=== PATIENT | female | born 1950 | race Caucasian/White ===

== ENCOUNTER 2017-12-01 22:10 | Inpatient (IN) | payer MEDICARE, MEDICAID ==
[~2017-12-01] VITALS: Ht 162.6 cm; Wt 102.1 kg
[2017-12-01] MEDS ORDERED: LOSA25TA96 PO (22:33)
[2017-12-01] MEDS ORDERED: OMEP40CA37 PO (22:33)
[2017-12-01] MEDS ORDERED: METF500T PO (22:33)
[2017-12-01] MEDS ORDERED: AMLO1CAP19 PO (22:33)
[2017-12-01] MEDS ORDERED: DET2LAC PO (22:33)
[2017-12-01] MEDS ORDERED: PARO30TA4 PO (22:33)
[2017-12-01] MEDS ORDERED: ROSU40TA PO (22:33)
[2017-12-01] MEDS ORDERED: FURO-150 PO (22:33)
[2017-12-01] MEDS ORDERED: ASPI-1264 PO (22:33)
[2017-12-01] MEDS ORDERED: GLIM1TAB46 PO (22:33)
[2017-12-01] MEDS ORDERED: ARIP5TAB4 PO (22:33)
[2017-12-01] MEDS ORDERED: ALB0.5UD IH (22:34)
[2017-12-01 22:43] LABS: INR 1.2 INR; PARTIAL THROMBOPLASTIN TIME 26 SECONDS (22-32)
[2017-12-01 22:46] LABS: ALANINE AMINOTRANSFERASE 14 U/L (12-78); ALBUMIN/GLOBULIN RATIO 0.7 (1.1-1.5); ALKALINE PHOSPHATASE 106 IU/L (46-116); ANION GAP 6 (8-16); ASPARTATE AMINO TRANSFERASE 12 U/L (10-37); BILIRUBIN,TOTAL 0.5 MG/DL (0.1-1.0); BLOOD UREA NITROGEN 11 MG/DL (7-18); BUN/CREATININE RATIO 16.2 (6.6-38.0); CALCIUM 8.5 MG/DL (8.5-10.1); CHLORIDE 94 MMOL/L (99-107); CREATININE 0.68 MG/DL (0.40-0.90); GLUCOSE 114 MG/DL (70-104); POTASSIUM 4.1 MMOL/L (3.5-5.1); SODIUM 131 MMOL/L (135-145); TOTAL CARBON DIOXIDE 31.3 MMOL/L (24-32); TOTAL PROTEIN 7.2 G/DL (6.4-8.2); eGFR 86 ML/MIN
[2017-12-01 22:55] LABS: BASOPHILS # (AUTO) 0.1 X10'3 (0-0.2); BASOPHILS % (AUTO) 0.6 % (0-1); EOSINOPHILS % (AUTO) 0 % (0-6); HEMATOCRIT 35.9 % (35.0-45.0); HEMOGLOBIN 10.8 g/dl (12.0-16.0); LYMPHOCYTES # (AUTO) 1.6 X10'3 (1.1-4.8); MEAN CORPUSCULAR HGB CONC 30.1 % (33.0-36.5); MEAN CORPUSCULAR VOLUME 66.6 FL (78-98); MEAN PLATELET VOLUME 7.8 FL (7.4-10.4); MONOCYTES # (AUTO) 0.8 X10'3 (0-0.9); MONOCYTES % (AUTO) 5.7 % (2-12); NEUTROPHILS # (AUTO) 12.3 X10'3 (1.8-7.7); NEUTROPHILS % (AUTO) 82.7 % (42-75); PLATELET COUNT 367 X10'3 (140-440); RED CELL DISTRIBUTION WIDTH 21.7 % (11.5-14.5); WHITE BLOOD COUNT 14.8 X10'3 (4.5-11.0)
[2017-12-01 22:57] LABS: PLATELET ESTIMATE NORMAL
[2017-12-01 22:58] LABS: ANISOCYTOSIS 3+; HYPOCHROMASIA 1+; POIKILOCYTOSIS 2+; POLYCHROMASIA 1+; TARGET CELLS 1+
[2017-12-01 22:59] LABS: SPHEROCYTES 1+
[2017-12-01 23:24] LABS: CLARITY,URINE CLEAR (Clear); COLOR,URINE YELLOW (Yellow); GLUCOSE, URINE NEGATIVE (Neg); KETONES,URINE TRACE mg/dl (Neg); LEUKOCYTE ESTERASE ,URINE NEGATIVE (Neg); NITRITES, URINE NEGATIVE (Neg); OCCULT BLOOD,URINE NEGATIVE (Neg); PROTEIN,URINE NEGATIVE (Neg)
[2017-12-01 23:27] LABS: UA COLLECTION TYPE CLN CATCH MIDSTREAM
[2017-12-01] MEDS ORDERED: methylPREDNISolone sod succ 125mg/2ml vial IV ONE (23:30)
[2017-12-01] MEDS ORDERED: ipratropium/albuterol 3ml nebule NEB ONE (23:30)
[2017-12-02] MEDS ORDERED: CefTRIAXone/D5W-Rocephin 1gm 50 ML IV ONE (00:15)
[2017-12-02] MEDS ORDERED: ondansetron/PF 4mg/2ml inj IV PRN (00:40)
[2017-12-02] MEDS ORDERED: magnesium hydroxide 30ml (MOM) UD suspension PO PRN (00:40)
[2017-12-02] MEDS ORDERED: mag hydrox/Alum hydrox/simeth 30ml oral suspension PO PRN (00:40)
[2017-12-02] MEDS ORDERED: acetaminophen 325mg tablet PO PRN (00:40)
[2017-12-02] MEDS ORDERED: albuterol 2.5 MG/3 ML nebule NEB PRN (00:45)
[2017-12-02] MEDS ORDERED: dextrose 50%-water 50ml dispensing syringe IV PRN ×2 (01:00)
[2017-12-02] MEDS ORDERED: dextrose ORAL solution 15 GM/59 ML bottle PO PRN ×2 (01:00)
[2017-12-02] MEDS ORDERED: MESSAGE TO PHARMACY PO ONE (01:00)
[2017-12-02] MEDS ORDERED: glucagon, human recombinant 1mg kit SUBCUT PRN (01:00)
[2017-12-02 01:30] VITALS: BP 133/49
[2017-12-02 01:32] LABS: % IRON SATURATION 3 % (11-46); IRON 18 UG/DL (49-151); TOTAL IRON BINDING CAPACITY 589 UG/DL (259-388)
[2017-12-02 01:35] LABS: HEMOGLOBIN A1C 7.2 % (4.5-6.2)
[2017-12-02 07:00] VITALS: BP 126/65
[2017-12-02] MEDS: heparin, porcine 5000 units/ml vial SQ SCH ×2 (07:57→21:42)
[2017-12-02] MEDS: methylPREDNISolone sod succ/PF 40mg inj. IV SCH ×2 (07:58→15:31)
[2017-12-02] MEDS: lisinopril 10 MG tablet PO SCH (08:00)
[2017-12-02] MEDS: losartan 50mg tablet PO SCH ×2 (08:00→21:43)
[2017-12-02] MEDS: pantoprazole 40mg Tablet.DR PO SCH (08:00)
[2017-12-02] MEDS: aripiprazole 5mg tablet PO SCH (08:00)
[2017-12-02] MEDS: aspirin 325mg tablet PO SCH (08:00)
[2017-12-02] MEDS ORDERED: tolterodine 2mg SR capsule (24hr) PO SCH (08:00)
[2017-12-02] MEDS: amLODIPine 2.5mg tablet PO SCH (08:00)
[2017-12-02] MEDS: PARoxetine 10mg tablet PO SCH (08:00)
[2017-12-02] MEDS: atorvastatin 20mg tablet PO SCH (08:00)
[2017-12-02 11:00] VITALS: BP 105/50
[2017-12-02] MEDS: insulin Lispro (HumaLOG) vial - multi-dose SQ SCH ×3 (11:47→20:09)
[2017-12-02] MEDS: furosemide 20 MG/2 ML vial IV SCH (15:31)
[2017-12-02] MEDS: azithromycin 250mg tablet PO SCH (15:31)
[2017-12-02] MEDS: nicotine 21mg patch - 24 hr TD SCH (19:06)
[2017-12-02 20:00] VITALS: BP 112/46
[2017-12-02] MEDS: lactobacillus rhamnosus 10,000 MMU CELLS/CAPSULE PO SCH (21:43)
[2017-12-02] MEDS: insulin glargine (Lantus) pen - multi-dose SQ SCH (21:48)
[2017-12-02] MEDS: CefTRIAXone/D5W-Rocephin 1gm 50 ML IV SCH (21:58)
[2017-12-02 23:30] VITALS: BP 130/74
[2017-12-03] MEDS: methylPREDNISolone sod succ/PF 40mg inj. IV SCH ×2 (00:04→07:55)
[2017-12-03 06:01] LABS: ALANINE AMINOTRANSFERASE 16 U/L (12-78); ALBUMIN 2.9 G/DL (3.4-5.0); ALBUMIN/GLOBULIN RATIO 0.7 (1.1-1.5); ALKALINE PHOSPHATASE 93 IU/L (46-116); ANION GAP 1 (8-16); ASPARTATE AMINO TRANSFERASE 10 U/L (10-37); BILIRUBIN,TOTAL 0.3 MG/DL (0.1-1.0); BLOOD UREA NITROGEN 14 MG/DL (7-18); BUN/CREATININE RATIO 19.2 (6.6-38.0); CHLORIDE 95 MMOL/L (99-107); CREATININE 0.73 MG/DL (0.40-0.90); GLUCOSE 181 MG/DL (70-104); POTASSIUM 4.7 MMOL/L (3.5-5.1); SODIUM 130 MMOL/L (135-145); TOTAL CARBON DIOXIDE 33.9 MMOL/L (24-32); TOTAL PROTEIN 6.9 G/DL (6.4-8.2); eGFR 79 ML/MIN
[2017-12-03 06:03] LABS: BASOPHILS % (AUTO) 0 % (0-1); EOSINOPHILS # (AUTO) 0.1 X10'3 (0-0.9); EOSINOPHILS % (AUTO) 0.7 % (0-6); HEMATOCRIT 33.5 % (35.0-45.0); LYMPHOCYTES # (AUTO) 0.7 X10'3 (1.1-4.8); LYMPHOCYTES % (AUTO) 4.9 % (21-51); MEAN CORPUSCULAR HGB CONC 29.8 % (33.0-36.5); MEAN CORPUSCULAR VOLUME 67.1 FL (78-98); MEAN PLATELET VOLUME 8.4 FL (7.4-10.4); MONOCYTES # (AUTO) 0.4 X10'3 (0-0.9); MONOCYTES % (AUTO) 3.3 % (2-12); NEUTROPHILS # (AUTO) 12.2 X10'3 (1.8-7.7); NEUTROPHILS % (AUTO) 91.1 % (42-75); PLATELET COUNT 360 X10'3 (140-440); RED CELL DISTRIBUTION WIDTH 21.4 % (11.5-14.5); WHITE BLOOD COUNT 13.4 X10'3 (4.5-11.0)
[2017-12-03 06:08] LABS: ANISOCYTOSIS 3+; MICROCYTOSIS 2+; PLATELET ESTIMATE NORMAL
[2017-12-03 06:09] LABS: HYPOCHROMASIA 2+
[2017-12-03 06:10] LABS: TARGET CELLS FEW
[2017-12-03 07:46] VITALS: BP 114/44
[2017-12-03] MEDS: amLODIPine 2.5mg tablet PO SCH (07:55)
[2017-12-03] MEDS: azithromycin 250mg tablet PO SCH (07:55)
[2017-12-03] MEDS: nicotine 21mg patch - 24 hr TD SCH (07:55)
[2017-12-03] MEDS: losartan 50mg tablet PO SCH ×2 (07:56→20:00)
[2017-12-03] MEDS: lisinopril 10 MG tablet PO SCH (07:56)
[2017-12-03] MEDS: pantoprazole 40mg Tablet.DR PO SCH (07:56)
[2017-12-03] MEDS: aspirin 325mg tablet PO SCH (07:56)
[2017-12-03] MEDS: aripiprazole 5mg tablet PO SCH (07:56)
[2017-12-03] MEDS: heparin, porcine 5000 units/ml vial SQ SCH ×2 (07:56→21:20)
[2017-12-03] MEDS: lactobacillus rhamnosus 10,000 MMU CELLS/CAPSULE PO SCH ×2 (07:56→20:00)
[2017-12-03] MEDS: furosemide 20 MG/2 ML vial IV SCH (07:57)
[2017-12-03] MEDS: atorvastatin 20mg tablet PO SCH (07:57)
[2017-12-03] MEDS: PARoxetine 10mg tablet PO SCH (08:18)
[2017-12-03] MEDS: insulin Lispro (HumaLOG) vial - multi-dose SQ SCH ×2 (08:27→19:26)
[2017-12-03] MEDS: oxybutynin 5mg tablet PO SCH ×4 (10:03→21:20)
[2017-12-03 11:00] VITALS: BP 94/51
[2017-12-03 18:00] VITALS: BP 84/42
[2017-12-03] MEDS: CefTRIAXone/D5W-Rocephin 1gm 50 ML IV SCH (21:20)
[2017-12-03] MEDS: insulin glargine (Lantus) pen - multi-dose SQ SCH (21:26)
[2017-12-04] VITALS: BP 101/41
[2017-12-04 04:55] LABS: BASOPHILS % (AUTO) 0.3 % (0-1); EOSINOPHILS % (AUTO) 0.1 % (0-6); HEMATOCRIT 35.8 % (35.0-45.0); HEMOGLOBIN 10.3 g/dl (12.0-16.0); LYMPHOCYTES # (AUTO) 2.8 X10'3 (1.1-4.8); LYMPHOCYTES % (AUTO) 19.5 % (21-51); MEAN CORPUSCULAR HEMOGLOBIN 19.8 PG (27.0-31.0); MEAN CORPUSCULAR HGB CONC 28.9 % (33.0-36.5); MEAN CORPUSCULAR VOLUME 68.6 FL (78-98); MEAN PLATELET VOLUME 8.1 FL (7.4-10.4); MONOCYTES # (AUTO) 1.2 X10'3 (0-0.9); MONOCYTES % (AUTO) 8.7 % (2-12); NEUTROPHILS # (AUTO) 10.2 X10'3 (1.8-7.7); NEUTROPHILS % (AUTO) 71.4 % (42-75); PLATELET COUNT 389 X10'3 (140-440); RED BLOOD COUNT 5.22 X10'6 (4.20-5.60); RED CELL DISTRIBUTION WIDTH 21.4 % (11.5-14.5); WHITE BLOOD COUNT 14.3 X10'3 (4.5-11.0)
[2017-12-04 05:25] LABS: ALANINE AMINOTRANSFERASE 14 U/L (12-78); ALBUMIN 2.9 G/DL (3.4-5.0); ALBUMIN/GLOBULIN RATIO 0.7 (1.1-1.5); ALKALINE PHOSPHATASE 86 IU/L (46-116); ANION GAP 2 (8-16); ASPARTATE AMINO TRANSFERASE 11 U/L (10-37); BILIRUBIN,TOTAL 0.2 MG/DL (0.1-1.0); BLOOD UREA NITROGEN 24 MG/DL (7-18); BUN/CREATININE RATIO 30.8 (6.6-38.0); CALCIUM 8.5 MG/DL (8.5-10.1); CHLORIDE 98 MMOL/L (99-107); CREATININE 0.78 MG/DL (0.40-0.90); GLUCOSE 91 MG/DL (70-104); POTASSIUM 4.7 MMOL/L (3.5-5.1); SODIUM 137 MMOL/L (135-145); TOTAL CARBON DIOXIDE 37.1 MMOL/L (24-32); TOTAL PROTEIN 6.8 G/DL (6.4-8.2); eGFR 73 ML/MIN
[2017-12-04 07:15] VITALS: BP 93/41
[2017-12-04] MEDS: losartan 50mg tablet PO SCH ×2 (08:00→20:31)
[2017-12-04] MEDS: amLODIPine 2.5mg tablet PO SCH (08:00)
[2017-12-04] MEDS: insulin Lispro (HumaLOG) vial - multi-dose SQ SCH ×2 (08:37→14:15)
[2017-12-04] MEDS: nicotine 21mg patch - 24 hr TD SCH (08:39)
[2017-12-04] MEDS: heparin, porcine 5000 units/ml vial SQ SCH ×2 (08:39→20:31)
[2017-12-04] MEDS: lactobacillus rhamnosus 10,000 MMU CELLS/CAPSULE PO SCH ×2 (08:40→20:31)
[2017-12-04] MEDS: aspirin 325mg tablet PO SCH (08:40)
[2017-12-04] MEDS: atorvastatin 20mg tablet PO SCH (08:40)
[2017-12-04] MEDS: oxybutynin 5mg tablet PO SCH ×4 (08:40→20:31)
[2017-12-04] MEDS: azithromycin 250mg tablet PO SCH (08:40)
[2017-12-04] MEDS: PARoxetine 10mg tablet PO SCH (08:40)
[2017-12-04] MEDS: pantoprazole 40mg Tablet.DR PO SCH (08:40)
[2017-12-04] MEDS: aripiprazole 5mg tablet PO SCH (08:41)
[2017-12-04 10:19] LABS: ANISOCYTOSIS 3+; MICROCYTOSIS 2+; PLATELET ESTIMATE NORMAL
[2017-12-04 10:20] LABS: ELLIPTOCYTES FEW; HYPOCHROMASIA 2+; POLYCHROMASIA FEW; STOMATOCYTES 1+
[2017-12-04 10:21] LABS: BURR CELLS FEW; SCHISTOCYTES FEW
[2017-12-04 11:00] VITALS: BP 97/56
[2017-12-04 18:00] VITALS: BP 104/62
[2017-12-04] MEDS: CefTRIAXone/D5W-Rocephin 1gm 50 ML IV SCH (20:30)
[2017-12-04] MEDS: insulin glargine (Lantus) pen - multi-dose SQ SCH (21:54)
[2017-12-05] VITALS (20 sets, daily range): BP systolic 82–150; BP diastolic 32–67
[2017-12-05 05:22] LABS: ALANINE AMINOTRANSFERASE 15 U/L (12-78); ALBUMIN 2.9 G/DL (3.4-5.0); ALBUMIN/GLOBULIN RATIO 0.7 (1.1-1.5); ALKALINE PHOSPHATASE 91 IU/L (46-116); ANION GAP 3 (8-16); ASPARTATE AMINO TRANSFERASE 11 U/L (10-37); BILIRUBIN,TOTAL 0.2 MG/DL (0.1-1.0); BLOOD UREA NITROGEN 28 MG/DL (7-18); BUN/CREATININE RATIO 32.6 (6.6-38.0); CALCIUM 8.3 MG/DL (8.5-10.1); CHLORIDE 97 MMOL/L (99-107); CREATININE 0.86 MG/DL (0.40-0.90); GLUCOSE 113 MG/DL (70-104); POTASSIUM 4.9 MMOL/L (3.5-5.1); SODIUM 134 MMOL/L (135-145); TOTAL CARBON DIOXIDE 34.5 MMOL/L (24-32); TOTAL PROTEIN 6.8 G/DL (6.4-8.2); eGFR 65 ML/MIN
[2017-12-05 05:24] LABS: BASOPHILS # (AUTO) 0.1 X10'3 (0-0.2); BASOPHILS % (AUTO) 1.1 % (0-1); EOSINOPHILS % (AUTO) 0.2 % (0-6); HEMATOCRIT 35.8 % (35.0-45.0); HEMOGLOBIN 10.3 g/dl (12.0-16.0); LYMPHOCYTES # (AUTO) 1.6 X10'3 (1.1-4.8); LYMPHOCYTES % (AUTO) 13.8 % (21-51); MEAN CORPUSCULAR HEMOGLOBIN 20.1 PG (27.0-31.0); MEAN CORPUSCULAR HGB CONC 28.7 % (33.0-36.5); MEAN CORPUSCULAR VOLUME 70.1 FL (78-98); MEAN PLATELET VOLUME 7.9 FL (7.4-10.4); MONOCYTES # (AUTO) 0.9 X10'3 (0-0.9); MONOCYTES % (AUTO) 7.4 % (2-12); NEUTROPHILS # (AUTO) 9.2 X10'3 (1.8-7.7); NEUTROPHILS % (AUTO) 77.5 % (42-75); PLATELET COUNT 401 X10'3 (140-440); RED BLOOD COUNT 5.11 X10'6 (4.20-5.60); RED CELL DISTRIBUTION WIDTH 20.2 % (11.5-14.5); WHITE BLOOD COUNT 11.8 X10'3 (4.5-11.0)
[2017-12-05] MEDS: amLODIPine 2.5mg tablet PO SCH (08:00)
[2017-12-05] MEDS: losartan 50mg tablet PO SCH (08:00)
[2017-12-05 08:09] LABS: PLATELET ESTIMATE NORMAL
[2017-12-05 08:10] LABS: POLYCHROMASIA 1+
[2017-12-05 08:11] LABS: ANISOCYTOSIS 2+; HYPOCHROMASIA 2+; MICROCYTOSIS 2+; STOMATOCYTES 1+
[2017-12-05 08:12] LABS: ELLIPTOCYTES FEW; TARGET CELLS FEW
[2017-12-05] MEDS: azithromycin 250mg tablet PO SCH (08:15)
[2017-12-05] MEDS: atorvastatin 20mg tablet PO SCH (08:15)
[2017-12-05] MEDS: heparin, porcine 5000 units/ml vial SQ SCH ×2 (08:15→20:30)
[2017-12-05] MEDS: insulin Lispro (HumaLOG) vial - multi-dose SQ SCH (08:15)
[2017-12-05] MEDS: pantoprazole 40mg Tablet.DR PO SCH (08:16)
[2017-12-05] MEDS: oxybutynin 5mg tablet PO SCH ×4 (08:16→20:30)
[2017-12-05] MEDS: aripiprazole 5mg tablet PO SCH (08:16)
[2017-12-05] MEDS: PARoxetine 10mg tablet PO SCH (08:16)
[2017-12-05] MEDS: aspirin 325mg tablet PO SCH (08:16)
[2017-12-05] MEDS: lactobacillus rhamnosus 10,000 MMU CELLS/CAPSULE PO SCH ×2 (08:16→20:30)
[2017-12-05] MEDS: nicotine 21mg patch - 24 hr TD SCH (08:17)
[2017-12-05] MEDS ORDERED: orphenadrine citrate 60mg/2ml inj. IV ONE ×3 (09:25→10:05)
[2017-12-05 09:59] LABS: MAGNESIUM 2.4 MG/DL (1.5-2.4); TROPONIN I < 0.04 NG/ML (0.0-0.05)
[2017-12-05 10:06] LABS: ABG BASE EXCESS 6.3 mmol/L (-2.0-3.0); ABG HCO3 37.6 mmol/L (22.0-26.0); ABG OXYGEN SATURATION 98.2 % (95-98); ABG PCO2 (T) 102.5 mmHg (32.0-45.0); ABG PH (T) 7.182 (7.350-7.450); ABG PO2 (T) 149.1 mmHg (83-108); ALLEN'S TEST Positive; FCOHb 1.4 % (0.5-1.5); FLOW 15 L/min; FMetHb 0.3 % (0.3-1.12); FO2Hb 96.5 % (94-100); TOTAL HEMOGLOBIN 11.4 G/dl (12.0-16.0)
[2017-12-05] MEDS ORDERED: normal saline 500ml IV soln 500 ML IV ONE (11:00)
[2017-12-05 11:21] LABS: ABG BASE EXCESS 6.1 mmol/L (-2.0-3.0); ABG HCO3 35.9 mmol/L (22.0-26.0); ABG OXYGEN SATURATION 93.7 % (95-98); ABG PCO2 (T) 88.4 mmHg (32.0-45.0); ABG PH (T) 7.227 (7.350-7.450); ABG PO2 (T) 77.3 mmHg (83-108); ALLEN'S TEST Positive; FCOHb 1.8 % (0.5-1.5); FMetHb 0.3 % (0.3-1.12); FO2Hb 91.7 % (94-100); TOTAL HEMOGLOBIN 10.7 G/dl (12.0-16.0)
[2017-12-05] MEDS ORDERED: hydrocortisone sod succ/PF 100mg/2ml inj. IV ONE (18:40)
[2017-12-05 18:55] LABS: ABG BASE EXCESS 9.3 mmol/L (-2.0-3.0); ABG HCO3 37.3 mmol/L (22.0-26.0); ABG PCO2 (T) 72.9 mmHg (32.0-45.0); ABG PH (T) 7.327 (7.350-7.450); ABG PO2 (T) 55.3 mmHg (83-108); ALLEN'S TEST Positive; FCOHb 2.1 % (0.5-1.5); FLOW 2 L/min; FMetHb 0.3 % (0.3-1.12); FO2Hb 85.9 % (94-100); PATIENT TEMPERATURE 37.2; TOTAL HEMOGLOBIN 10.4 G/dl (12.0-16.0)
[2017-12-05] MEDS: normal saline 1000ml 1,000 ML IV SCH (19:38)
[2017-12-05] MEDS: DOPamine 400mg/D5W 250ml 250 ML IV SCH (19:42)
[2017-12-05] MEDS: CefTRIAXone/D5W-Rocephin 1gm 50 ML IV SCH (20:30)
[2017-12-05] MEDS: insulin glargine (Lantus) pen - multi-dose SQ SCH (22:38)
[2017-12-05] MEDS ORDERED: ipratropium/albuterol 3ml nebule NEB PRN (23:05)
[2017-12-05 23:35] LABS: ABG BASE EXCESS 5.7 mmol/L (-2.0-3.0); ABG HCO3 34.4 mmol/L (22.0-26.0); ABG OXYGEN SATURATION 94.6 % (95-98); ABG PCO2 (T) 75.9 mmHg (32.0-45.0); ABG PH (T) 7.276 (7.350-7.450); ABG PO2 (T) 83.6 mmHg (83-108); ALLEN'S TEST Positive; FCOHb 1.5 % (0.5-1.5); FMetHb 0.3 % (0.3-1.12); FO2Hb 92.9 % (94-100); MINUTE VOLUME 6 L/min; PATIENT TEMPERATURE 37.3; RESPIRATORY RATE 20 b/min; RESPIRATORY RATE (OBSERVED) 21 b/min; TOTAL HEMOGLOBIN 11.4 G/dl (12.0-16.0)
[2017-12-05] MEDS: ipratropium/albuterol 3ml nebule NEB SCH (23:41)
[2017-12-05] MEDS: methylPREDNISolone sod succ 125mg/2ml vial IV SCH (23:41)
[2017-12-06] VITALS (24 sets, daily range): BP systolic 77–152; BP diastolic 35–97
[2017-12-06 01:00] LABS: PLATELET COUNT 349 X10'3 (140-440)
[2017-12-06 01:11] LABS: D-DIMER 0.54 MG/L FEU (0-0.50); INR 1.1 INR; PARTIAL THROMBOPLASTIN TIME 26 SECONDS (22-32); PROTHROMBIN TIME 11.8 SECONDS (9.0-12.0)
[2017-12-06 01:23] LABS: ALANINE AMINOTRANSFERASE 16 U/L (12-78); ALBUMIN/GLOBULIN RATIO 0.8 (1.1-1.5); ALKALINE PHOSPHATASE 99 IU/L (46-116); ANION GAP 3 (8-16); ASPARTATE AMINO TRANSFERASE 16 U/L (10-37); BILIRUBIN,TOTAL 0.4 MG/DL (0.1-1.0); BLOOD UREA NITROGEN 18 MG/DL (7-18); CALCIUM 8.8 MG/DL (8.5-10.1); CHLORIDE 97 MMOL/L (99-107); CREATININE 0.75 MG/DL (0.40-0.90); GLUCOSE 165 MG/DL (70-104); POTASSIUM 4.6 MMOL/L (3.5-5.1); SODIUM 136 MMOL/L (135-145); TOTAL CARBON DIOXIDE 36.2 MMOL/L (24-32); eGFR 77 ML/MIN
[2017-12-06 02:06] LABS: BASOPHILS % (AUTO) 0 % (0-1); EOSINOPHILS % (AUTO) 0.1 % (0-6); HEMATOCRIT 36.9 % (35.0-45.0); HEMOGLOBIN 10.8 g/dl (12.0-16.0); LYMPHOCYTES % (AUTO) 6.5 % (21-51); MEAN CORPUSCULAR HEMOGLOBIN 20.1 PG (27.0-31.0); MEAN CORPUSCULAR HGB CONC 29.4 % (33.0-36.5); MEAN CORPUSCULAR VOLUME 68.5 FL (78-98); MEAN PLATELET VOLUME 8.1 FL (7.4-10.4); MONOCYTES # (AUTO) 0.5 X10'3 (0-0.9); MONOCYTES % (AUTO) 3.3 % (2-12); NEUTROPHILS # (AUTO) 13.3 X10'3 (1.8-7.7); NEUTROPHILS % (AUTO) 90.1 % (42-75); PLATELET COUNT 331 X10'3 (140-440); RED BLOOD COUNT 5.39 X10'6 (4.20-5.60); RED CELL DISTRIBUTION WIDTH 21.4 % (11.5-14.5); WHITE BLOOD COUNT 14.7 X10'3 (4.5-11.0)
[2017-12-06] MEDS: methylPREDNISolone sod succ 125mg/2ml vial IV SCH ×4 (02:11→20:54)
[2017-12-06] MEDS: ipratropium/albuterol 3ml nebule NEB SCH ×6 (03:34→23:43)
[2017-12-06] MEDS: HYDROcodone/acetaminophen 5mg/325mg tablet PO PRN (04:14)
[2017-12-06 04:41] LABS: ABG BASE EXCESS 6.6 mmol/L (-2.0-3.0); ABG HCO3 34.6 mmol/L (22.0-26.0); ABG OXYGEN SATURATION 97.2 % (95-98); ABG PCO2 (T) 67.8 mmHg (32.0-45.0); ABG PH (T) 7.326 (7.350-7.450); ABG PO2 (T) 106.4 mmHg (83-108); ALLEN'S TEST Positive; FCOHb 1.4 % (0.5-1.5); FMetHb 0.3 % (0.3-1.12); FO2Hb 95.5 % (94-100); MINUTE VOLUME 12 L/min; PATIENT TEMPERATURE 37.2; RESPIRATORY RATE 20 b/min; RESPIRATORY RATE (OBSERVED) 44 b/min
[2017-12-06 06:25] LABS: HYPOCHROMASIA 2+; PLATELET ESTIMATE NORMAL; POLYCHROMASIA 1+
[2017-12-06 06:26] LABS: ANISOCYTOSIS 3+; ELLIPTOCYTES FEW; MICROCYTOSIS 2+; STOMATOCYTES 1+; TARGET CELLS FEW
[2017-12-06] MEDS: nicotine 21mg patch - 24 hr TD SCH (07:33)
[2017-12-06] MEDS: heparin, porcine 5000 units/ml vial SQ SCH ×2 (07:36→20:55)
[2017-12-06] MEDS: aspirin 325mg tablet PO SCH (07:46)
[2017-12-06] MEDS: pantoprazole 40mg Tablet.DR PO SCH (07:46)
[2017-12-06] MEDS: lactobacillus rhamnosus 10,000 MMU CELLS/CAPSULE PO SCH ×2 (07:46→20:54)
[2017-12-06] MEDS: atorvastatin 20mg tablet PO SCH (07:47)
[2017-12-06] MEDS: oxybutynin 5mg tablet PO SCH ×4 (07:47→20:55)
[2017-12-06] MEDS: azithromycin 250mg tablet PO SCH (07:47)
[2017-12-06] MEDS: PARoxetine 10mg tablet PO SCH (07:51)
[2017-12-06] MEDS: aripiprazole 5mg tablet PO SCH (07:54)
[2017-12-06] MEDS: insulin Lispro (HumaLOG) vial - multi-dose SQ SCH ×3 (08:06→18:49)
[2017-12-06] MEDS: DOPamine 400mg/D5W 250ml 250 ML IV SCH ×2 (10:59→17:35)
[2017-12-06 11:31] LABS: ABG BASE EXCESS 7.3 mmol/L (-2.0-3.0); ABG HCO3 34.2 mmol/L (22.0-26.0); ABG OXYGEN SATURATION 94.4 % (95-98); ABG PCO2 (T) 55.6 mmHg (32.0-45.0); ABG PH (T) 7.398 (7.350-7.450); ABG PO2 (T) 64.7 mmHg (83-108); ALLEN'S TEST Positive; FCOHb 1.6 % (0.5-1.5); FMetHb 0.3 % (0.3-1.12); FO2Hb 92.6 % (94-100); MINUTE VOLUME 10 L/min; RESPIRATORY RATE 20 b/min; RESPIRATORY RATE (OBSERVED) 21 b/min; TIDAL VOLUME 518 mL; TOTAL HEMOGLOBIN 11.1 G/dl (12.0-16.0)
[2017-12-06 13:18] LABS: CLARITY,URINE CLEAR (Clear); COLOR,URINE STRAW (Yellow); GLUCOSE, URINE 250 mg/dl (Neg); KETONES,URINE TRACE mg/dl (Neg); LEUKOCYTE ESTERASE ,URINE NEGATIVE (Neg); NITRITES, URINE NEGATIVE (Neg); OCCULT BLOOD,URINE TRACE-INTACT (Neg); PH,URINE 7.5 (4.8-8.0); PROTEIN,URINE TRACE mg/dl (Neg); UROBILINOGEN,URINE 0.2 E.U/dL (0.2-1.0)
[2017-12-06 13:19] LABS: UA COLLECTION TYPE FOLEY CATH
[2017-12-06 13:24] LABS: BACTERIA,URINE NONE SEEN /HPF (Neg); COARSE GRANULAR CAST 0-3 /LPF (NEGATIVE); MUCUS STRANDS NONE SEEN /LPF (Neg); RBC,URINE 0-2 /HPF (0-2); SQUAMOUS EPITHELIAL CELL,UR FEW /LPF (FEW); WBC,URINE 0-4 /HPF (0-4)
[2017-12-06] MEDS: normal saline 1000ml 1,000 ML IV SCH ×2 (15:05→23:52)
[2017-12-06] MEDS: CefTRIAXone/D5W-Rocephin 1gm 50 ML IV SCH (20:55)
[2017-12-06] MEDS: insulin glargine (Lantus) pen - multi-dose SQ SCH (21:08)
[2017-12-07] VITALS (8 sets, daily range): BP systolic 114–147; BP diastolic 50–99
[2017-12-07] MEDS: methylPREDNISolone sod succ 125mg/2ml vial IV SCH ×4 (02:04→20:33)
[2017-12-07] MEDS: ipratropium/albuterol 3ml nebule NEB SCH ×6 (03:54→23:30)
[2017-12-07 05:53] LABS: ALANINE AMINOTRANSFERASE 21 U/L (12-78); ALBUMIN 3.1 G/DL (3.4-5.0); ALBUMIN/GLOBULIN RATIO 0.8 (1.1-1.5); ALKALINE PHOSPHATASE 86 IU/L (46-116); ANION GAP 6 (8-16); ASPARTATE AMINO TRANSFERASE 9 U/L (10-37); BILIRUBIN,TOTAL 0.4 MG/DL (0.1-1.0); BLOOD UREA NITROGEN 17 MG/DL (7-18); BUN/CREATININE RATIO 23.6 (6.6-38.0); CHLORIDE 96 MMOL/L (99-107); CREATININE 0.72 MG/DL (0.40-0.90); GLUCOSE 190 MG/DL (70-104); POTASSIUM 4.1 MMOL/L (3.5-5.1); SODIUM 135 MMOL/L (135-145); TOTAL PROTEIN 7.1 G/DL (6.4-8.2); eGFR 80 ML/MIN
[2017-12-07 06:45] LABS: BASOPHILS % (AUTO) 0 % (0-1); EOSINOPHILS % (AUTO) 0.3 % (0-6); HEMATOCRIT 37.2 % (35.0-45.0); HEMOGLOBIN 10.8 g/dl (12.0-16.0); LYMPHOCYTES # (AUTO) 0.6 X10'3 (1.1-4.8); LYMPHOCYTES % (AUTO) 6.2 % (21-51); MEAN CORPUSCULAR HEMOGLOBIN 19.6 PG (27.0-31.0); MEAN CORPUSCULAR HGB CONC 28.9 % (33.0-36.5); MONOCYTES # (AUTO) 0.3 X10'3 (0-0.9); MONOCYTES % (AUTO) 3.4 % (2-12); NEUTROPHILS # (AUTO) 8.2 X10'3 (1.8-7.7); NEUTROPHILS % (AUTO) 90.1 % (42-75); PLATELET COUNT 337 X10'3 (140-440); RED BLOOD COUNT 5.47 X10'6 (4.20-5.60); RED CELL DISTRIBUTION WIDTH 21.1 % (11.5-14.5); WHITE BLOOD COUNT 9.1 X10'3 (4.5-11.0)
[2017-12-07] MEDS: nicotine 21mg patch - 24 hr TD SCH (07:51)
[2017-12-07] MEDS: heparin, porcine 5000 units/ml vial SQ SCH ×2 (07:52→20:33)
[2017-12-07] MEDS: pantoprazole 40mg Tablet.DR PO SCH (07:53)
[2017-12-07] MEDS: atorvastatin 20mg tablet PO SCH (07:53)
[2017-12-07] MEDS: azithromycin 250mg tablet PO SCH (07:53)
[2017-12-07] MEDS: aspirin 325mg tablet PO SCH (07:53)
[2017-12-07] MEDS: PARoxetine 10mg tablet PO SCH (07:53)
[2017-12-07] MEDS: lactobacillus rhamnosus 10,000 MMU CELLS/CAPSULE PO SCH ×2 (07:53→20:33)
[2017-12-07] MEDS: aripiprazole 5mg tablet PO SCH (07:53)
[2017-12-07] MEDS: oxybutynin 5mg tablet PO SCH ×4 (07:53→20:33)
[2017-12-07] MEDS: insulin Lispro (HumaLOG) vial - multi-dose SQ SCH ×3 (08:38→18:34)
[2017-12-07 10:39] LABS: PLATELET ESTIMATE NORMAL
[2017-12-07 10:42] LABS: ANISOCYTOSIS 3+; ELLIPTOCYTES FEW; HYPOCHROMASIA 1+; MICROCYTOSIS 2+; POLYCHROMASIA FEW; TEAR DROP CELLS FEW
[2017-12-07 10:43] LABS: TARGET CELLS 1+
[2017-12-07] MEDS: HYDROcodone/acetaminophen 5mg/325mg tablet PO PRN ×2 (15:08→20:36)
[2017-12-07] MEDS: normal saline 1000ml 1,000 ML IV SCH (16:41)
[2017-12-07] MEDS: DOPamine 400mg/D5W 250ml 250 ML IV SCH (17:35)
[2017-12-07] MEDS: CefTRIAXone/D5W-Rocephin 1gm 50 ML IV SCH (20:33)
[2017-12-07] MEDS: insulin glargine (Lantus) pen - multi-dose SQ SCH (21:17)
[2017-12-08] MEDS: methylPREDNISolone sod succ 125mg/2ml vial IV SCH ×3 (02:12→13:11)
[2017-12-08 03:00] VITALS: BP 129/66
[2017-12-08] MEDS: ipratropium/albuterol 3ml nebule NEB SCH ×4 (03:05→14:35)
[2017-12-08 07:00] VITALS: BP 145/68
[2017-12-08 07:28] LABS: HEMATOCRIT 36.9 % (35.0-45.0); HEMOGLOBIN 10.9 g/dl (12.0-16.0); MEAN CORPUSCULAR HEMOGLOBIN 19.9 PG (27.0-31.0); MEAN CORPUSCULAR HGB CONC 29.4 % (33.0-36.5); MEAN CORPUSCULAR VOLUME 67.5 FL (78-98); MEAN PLATELET VOLUME 7.9 FL (7.4-10.4); PLATELET COUNT 315 X10'3 (140-440); RED BLOOD COUNT 5.47 X10'6 (4.20-5.60); RED CELL DISTRIBUTION WIDTH 21.4 % (11.5-14.5); WHITE BLOOD COUNT 11.2 X10'3 (4.5-11.0)
[2017-12-08 07:43] LABS: LYMPHOCYTES % (MANUAL) 2 % (21-51); MONOCYTES % (MANUAL) 2 % (2-12); NEUTROPHILS % (MANUAL) 96 % (42-75); PLATELET ESTIMATE NORMAL; TOTAL CELLS COUNTED 100
[2017-12-08 07:44] LABS: ANISOCYTOSIS 3+; HYPOCHROMASIA 1+; MICROCYTOSIS 2+; POLYCHROMASIA FEW; TARGET CELLS FEW
[2017-12-08 07:45] LABS: ALANINE AMINOTRANSFERASE 22 U/L (12-78); ALBUMIN 2.9 G/DL (3.4-5.0); ALBUMIN/GLOBULIN RATIO 0.8 (1.1-1.5); ALKALINE PHOSPHATASE 73 IU/L (46-116); ANION GAP 3 (8-16); ASPARTATE AMINO TRANSFERASE 9 U/L (10-37); BILIRUBIN,TOTAL 0.3 MG/DL (0.1-1.0); BLOOD UREA NITROGEN 17 MG/DL (7-18); BUN/CREATININE RATIO 22.7 (6.6-38.0); CALCIUM 9.1 MG/DL (8.5-10.1); CHLORIDE 96 MMOL/L (99-107); CREATININE 0.75 MG/DL (0.40-0.90); ELLIPTOCYTES FEW; GLUCOSE 199 MG/DL (70-104); POTASSIUM 4.7 MMOL/L (3.5-5.1); SODIUM 133 MMOL/L (135-145); TOTAL CARBON DIOXIDE 33.9 MMOL/L (24-32); TOTAL PROTEIN 6.5 G/DL (6.4-8.2); eGFR 77 ML/MIN
[2017-12-08] MEDS: pantoprazole 40mg Tablet.DR PO SCH (08:04)
[2017-12-08] MEDS: lactobacillus rhamnosus 10,000 MMU CELLS/CAPSULE PO SCH (08:04)
[2017-12-08] MEDS: PARoxetine 10mg tablet PO SCH (08:04)
[2017-12-08] MEDS: atorvastatin 20mg tablet PO SCH (08:04)
[2017-12-08] MEDS: azithromycin 250mg tablet PO SCH (08:04)
[2017-12-08] MEDS: oxybutynin 5mg tablet PO SCH ×3 (08:04→16:14)
[2017-12-08] MEDS: aspirin 325mg tablet PO SCH (08:04)
[2017-12-08] MEDS: aripiprazole 5mg tablet PO SCH (08:04)
[2017-12-08] MEDS: nicotine 21mg patch - 24 hr TD SCH (08:05)
[2017-12-08] MEDS: heparin, porcine 5000 units/ml vial SQ SCH (08:05)
[2017-12-08] MEDS: insulin Lispro (HumaLOG) vial - multi-dose SQ SCH ×2 (08:19→13:15)
[2017-12-08] MEDS: normal saline 1000ml 1,000 ML IV SCH (09:14)
[2017-12-08] MEDS: HYDROcodone/acetaminophen 5mg/325mg tablet PO PRN ×2 (10:54→16:16)
[2017-12-08 11:00] VITALS: BP 168/57
[2017-12-08 15:00] VITALS: BP 130/55
[2017-12-08] MEDS: DOPamine 400mg/D5W 250ml 250 ML IV SCH (17:35)
== END 2017-12-08 19:30 | disposition home health service (06) | DRG 291 ==
LOC: ER 22:11 → SUR 3N 12-02 00:39 → CMPBEDREQ 12-02 05:17 → SUR 3N 12-03 02:10 → PCU 3S 12-05 11:59
PROVIDERS: ADMIT Internal Medicine; ATTEND Family Medicine
PROC: 5A09457 Assistance with Respiratory Ventilation, 24-96 Consecutive Hours, Continuous Positive Airway Pressure (ICD-10-PCS; principal; 2017-12-05)
PROC: 5A09357 Assistance with Respiratory Ventilation, Less than 24 Consecutive Hours, Continuous Positive Airway Pressure (ICD-10-PCS; 2017-12-06)
PROC: 5A09357 Assistance with Respiratory Ventilation, Less than 24 Consecutive Hours, Continuous Positive Airway Pressure (ICD-10-PCS; 2017-12-07)
DX: I11.0 Hypertensive heart disease with heart failure (principal); J96.01 Acute respiratory failure with hypoxia; J18.9 Pneumonia, unspecified organism; J44.1 Chronic obstructive pulmonary disease with (acute) exacerbation; E87.2 Acidosis; J44.0 Chronic obstructive pulmonary disease with (acute) lower respiratory infection; I27.81 Cor pulmonale (chronic); I50.33 Acute on chronic diastolic (congestive) heart failure; F31.9 Bipolar disorder, unspecified; D50.9 Iron deficiency anemia, unspecified; E11.9 Type 2 diabetes mellitus without complications; E78.5 Hyperlipidemia, unspecified; G47.33 Obstructive sleep apnea (adult) (pediatric); I36.1 Nonrheumatic tricuspid (valve) insufficiency; I27.20 Pulmonary hypertension, unspecified; I48.91 Unspecified atrial fibrillation; I95.9 Hypotension, unspecified; F17.200 Nicotine dependence, unspecified, uncomplicated; Z88.2 Allergy status to sulfonamides; Z79.899 Other long term (current) drug therapy; Z79.01 Long term (current) use of anticoagulants; Z79.82 Long term (current) use of aspirin; Z79.84 Long term (current) use of oral hypoglycemic drugs
CPT/HCPCS: 36415; 36600; 71045; 71250; 80053; 81001; 81003; 82533; 82803; 82948; 83036; 83540; 83550; 83605; 83735; 83880; 84145; 84443; 84484; 85018; 85025; 85379; 85384; 85610; 85730; 87040; 87070; 93005; 93306; 94640; 94660; 94760; 96374; 99285; A6257; A6449; J0696; J1265; J1644; J1720; J1815; J1940; J2360; J2405; J2920; J2930; J7030

== ENCOUNTER 2017-12-11 13:27 | Inpatient (IN) | payer MEDICARE, MEDICAID ==
[~2017-12-11] VITALS: Ht 152.4 cm; Wt 103.0 kg
[~2017-12-11 13:27] MED LIST: ALB0.5UD IH; AMLO1CAP19 PO; ARIP5TAB4 PO; ASPI-1264 PO; DET2LAC PO; GLIM1TAB46 PO; LOSA25TA96 PO; METF500T PO; PARO30TA4 PO; ROSU40TA PO
[2017-12-11] MEDS ORDERED: dextrose 5%-normal saline 1,000 ML IV ONE (13:45)
[2017-12-11 14:11] LABS: ALANINE AMINOTRANSFERASE 32 U/L (12-78); ALBUMIN 2.9 G/DL (3.4-5.0); ALBUMIN/GLOBULIN RATIO 0.9 (1.1-1.5); ALKALINE PHOSPHATASE 73 IU/L (46-116); ANION GAP 3 (8-16); ASPARTATE AMINO TRANSFERASE 13 U/L (10-37); BILIRUBIN,TOTAL 0.5 MG/DL (0.1-1.0); BLOOD UREA NITROGEN 14 MG/DL (7-18); BUN/CREATININE RATIO 21.5 (6.6-38.0); CALCIUM 8.7 MG/DL (8.5-10.1); CHLORIDE 99 MMOL/L (99-107); CREATININE 0.65 MG/DL (0.40-0.90); GLUCOSE 88 MG/DL (70-104); POTASSIUM 3.7 MMOL/L (3.5-5.1); SODIUM 136 MMOL/L (135-145); TOTAL CARBON DIOXIDE 33.9 MMOL/L (24-32); TOTAL PROTEIN 6.1 G/DL (6.4-8.2); eGFR 90 ML/MIN
[2017-12-11 14:16] LABS: BASOPHILS % (AUTO) 0.1 % (0-1); EOSINOPHILS # (AUTO) 0.1 X10'3 (0-0.9); EOSINOPHILS % (AUTO) 0.7 % (0-6); HEMATOCRIT 39.5 % (35.0-45.0); HEMOGLOBIN 11.5 g/dl (12.0-16.0); LYMPHOCYTES # (AUTO) 1.5 X10'3 (1.1-4.8); MEAN CORPUSCULAR HEMOGLOBIN 19.8 PG (27.0-31.0); MEAN CORPUSCULAR HGB CONC 29.2 % (33.0-36.5); MEAN CORPUSCULAR VOLUME 67.9 FL (78-98); MEAN PLATELET VOLUME 8.1 FL (7.4-10.4); MONOCYTES # (AUTO) 0.9 X10'3 (0-0.9); MONOCYTES % (AUTO) 4.8 % (2-12); NEUTROPHILS # (AUTO) 16.1 X10'3 (1.8-7.7); NEUTROPHILS % (AUTO) 86.4 % (42-75); PLATELET COUNT 288 X10'3 (140-440); RED BLOOD COUNT 5.81 X10'6 (4.20-5.60); RED CELL DISTRIBUTION WIDTH 23.2 % (11.5-14.5); WHITE BLOOD COUNT 18.6 X10'3 (4.5-11.0)
[2017-12-11 14:47] LABS: ANISOCYTOSIS 3+; MICROCYTOSIS 2+; PLATELET ESTIMATE NORMAL; SPHEROCYTES 1+; TARGET CELLS FEW
[2017-12-11 14:48] LABS: ACANTHOCYTES FEW; HYPOCHROMASIA 3+; POIKILOCYTOSIS FEW
[2017-12-11] MEDS ORDERED: levoFLOXACIN-Levaquin 750MG/D5 150 ML IV STA (14:49)
[2017-12-11 14:50] LABS: ELLIPTOCYTES 1+; POLYCHROMASIA FEW
[2017-12-11] MEDS ORDERED: UMEC1DIS (16:01)
[2017-12-11] MEDS ORDERED: magnesium hydroxide 30ml (MOM) UD suspension PO PRN (17:20)
[2017-12-11] MEDS ORDERED: dextrose ORAL solution 15 GM/59 ML bottle PO PRN ×2 (17:20)
[2017-12-11] MEDS ORDERED: glucagon, human recombinant 1mg kit SUBCUT PRN (17:20)
[2017-12-11] MEDS ORDERED: acetaminophen 325mg tablet PO PRN (17:20)
[2017-12-11] MEDS ORDERED: potassium Cl 40MEQ/NS 500ml 500 ML IV PRN ×2 (17:20)
[2017-12-11] MEDS ORDERED: MESSAGE TO PHARMACY PO ONE (17:20)
[2017-12-11] MEDS ORDERED: ondansetron/PF 4mg/2ml inj IV PRN (17:20)
[2017-12-11] MEDS ORDERED: dextrose 50%-water 50ml dispensing syringe IV PRN ×2 (17:20)
[2017-12-11] MEDS ORDERED: magnesium Cl slow-release 64mg tablet PO PRN (17:20)
[2017-12-11] MEDS ORDERED: potassium Cl 20 mEq SR tablet PO PRN ×2 (17:20)
[2017-12-11] MEDS ORDERED: insulin Lispro (HumaLOG) vial - multi-dose SQ SCH (17:20)
[2017-12-11] MEDS ORDERED: magnesium 4gm in 100ml NS 100 ML IV PRN (17:20)
[2017-12-11] MEDS ORDERED: mag hydrox/Alum hydrox/simeth 30ml oral suspension PO PRN (17:20)
[2017-12-11] MEDS ORDERED: magnesium/D5W IVPB 50 ML IV PRN (17:20)
[2017-12-11 17:23] LABS: CLARITY,URINE CLEAR (Clear); COLOR,URINE YELLOW (Yellow); GLUCOSE, URINE NEGATIVE (Neg); KETONES,URINE NEGATIVE (Neg); LEUKOCYTE ESTERASE ,URINE TRACE (Neg); NITRITES, URINE NEGATIVE (Neg); OCCULT BLOOD,URINE NEGATIVE (Neg); PH,URINE 7.5 (4.8-8.0); PROTEIN,URINE TRACE mg/dl (Neg)
[2017-12-11 17:24] LABS: UA COLLECTION TYPE CLN CATCH MIDSTREAM
[2017-12-11 17:29] LABS: BACTERIA,URINE NONE SEEN /HPF (Neg); MUCUS STRANDS NONE SEEN /LPF (Neg); RBC,URINE NONE SEEN /HPF (0-2); SQUAMOUS EPITHELIAL CELL,UR MODERATE /LPF (FEW)
[2017-12-11 19:00] VITALS: BP 114/52
[2017-12-11] MEDS: dextrose 5%-1/2 normal saline 1,000 ML IV SCH (19:06)
[2017-12-11] MEDS: losartan 50mg tablet PO SCH (20:55)
[2017-12-11] MEDS: fluconazole 100mg tablet PO SCH (20:55)
[2017-12-11] MEDS ORDERED: insulin glargine (Lantus) pen - multi-dose SQ SCH (21:00)
[2017-12-11 23:00] VITALS: BP 147/63
[2017-12-12 03:00] VITALS: BP 90/57
[2017-12-12] MEDS: dextrose 5%-1/2 normal saline 1,000 ML IV SCH (03:18)
[2017-12-12 05:34] LABS: HEMATOCRIT 35.4 % (35.0-45.0); HEMOGLOBIN 10.4 g/dl (12.0-16.0); MEAN CORPUSCULAR HEMOGLOBIN 19.9 PG (27.0-31.0); MEAN CORPUSCULAR HGB CONC 29.5 % (33.0-36.5); MEAN CORPUSCULAR VOLUME 67.4 FL (78-98); MEAN PLATELET VOLUME 8.2 FL (7.4-10.4); PLATELET COUNT 267 X10'3 (140-440); RED BLOOD COUNT 5.24 X10'6 (4.20-5.60); RED CELL DISTRIBUTION WIDTH 22.6 % (11.5-14.5); WHITE BLOOD COUNT 14.2 X10'3 (4.5-11.0)
[2017-12-12 05:55] LABS: ALBUMIN 2.5 G/DL (3.4-5.0); ANION GAP 6 (8-16); BLOOD UREA NITROGEN 9 MG/DL (7-18); BUN/CREATININE RATIO 13.8 (6.6-38.0); CALCIUM 8.4 MG/DL (8.5-10.1); CHLORIDE 102 MMOL/L (99-107); CREATININE 0.65 MG/DL (0.40-0.90); GLUCOSE 82 MG/DL (70-104); MAGNESIUM 1.6 MG/DL (1.5-2.4); PHOSPHORUS 4.4 MG/DL (2.3-4.5); POTASSIUM 3.9 MMOL/L (3.5-5.1); SODIUM 140 MMOL/L (135-145); TOTAL CARBON DIOXIDE 31.9 MMOL/L (24-32); eGFR 90 ML/MIN
[2017-12-12 06:00] VITALS: BP 113/63
[2017-12-12 06:09] LABS: ANISOCYTOSIS 3+; MICROCYTOSIS 2+; PLATELET ESTIMATE NORMAL; TOTAL CELLS COUNTED 100
[2017-12-12 06:10] LABS: HYPOCHROMASIA 2+; POLYCHROMASIA FEW; TARGET CELLS FEW
[2017-12-12] MEDS: fluconazole 100mg tablet PO SCH (07:40)
[2017-12-12] MEDS ORDERED: PARoxetine 10mg tablet PO SCH (08:00)
[2017-12-12] MEDS ORDERED: levoFLOXACIN-Levaquin 500mg/D5 100 ML IV SCH (08:00)
[2017-12-12] MEDS ORDERED: aripiprazole 5mg tablet PO SCH (08:00)
[2017-12-12] MEDS ORDERED: tolterodine 2mg SR capsule (24hr) PO SCH (08:00)
[2017-12-12] MEDS ORDERED: atorvastatin 10mg tablet PO SCH (08:00)
[2017-12-12] MEDS: losartan 50mg tablet PO SCH (08:00)
[2017-12-12] MEDS ORDERED: K and/or MAG REPLACEMENT MC SCH (08:00)
[2017-12-12] MEDS ORDERED: aspirin 325mg tablet PO SCH (08:00)
[2017-12-12] MEDS ORDERED: amLODIPine 5mg tablet PO SCH (08:00)
[2017-12-12] MEDS ORDERED: enoxaparin 40mg/0.4ml syringe SUBCUT SCH (08:00)
[2017-12-12] MEDS ORDERED: LEVO500T2 PO (14:56)
== END 2017-12-12 12:30 | disposition home health service (06) | DRG 638 ==
LOC: ER 13:28 → ED HOLD 17:19 → PCU 3S 18:57
PROVIDERS: ADMIT Family Medicine; ATTEND Internal Medicine
DX: E11.649 Type 2 diabetes mellitus with hypoglycemia without coma (principal); Z68.41 Body mass index [BMI] 40.0-44.9, adult; K14.0 Glossitis; D72.829 Elevated white blood cell count, unspecified; F32.9 Major depressive disorder, single episode, unspecified; J44.9 Chronic obstructive pulmonary disease, unspecified; E66.01 Morbid (severe) obesity due to excess calories; E78.5 Hyperlipidemia, unspecified; G47.30 Sleep apnea, unspecified; I10 Essential (primary) hypertension; I48.91 Unspecified atrial fibrillation; T50.995A Adverse effect of other drugs, medicaments and biological substances, initial encounter; Z88.2 Allergy status to sulfonamides; Z79.82 Long term (current) use of aspirin; Z79.84 Long term (current) use of oral hypoglycemic drugs; Z79.899 Other long term (current) drug therapy; Z87.891 Personal history of nicotine dependence; Y92.89 Other specified places as the place of occurrence of the external cause
CPT/HCPCS: 36415; 71045; 71250; 80048; 80053; 81001; 82948; 83605; 83735; 84100; 85025; 87040; 87070; 87077; 87088; 87186; 93005; 96365; 99285; J1650; J1815; J1956; J7042; J7070